=== PATIENT | female | born 1935 | race Caucasian/White ===

== ENCOUNTER → 2018-03-01 | Outpatient (CLI) | payer OTHER ==
[~2018-03-01] MED LIST: LIPITOR20 MG; PERCOCET 5/3251 TAB PO; POLY119PG PO
== END | disposition home or self-care (01) ==
LOC: NUCLEAR 09:00
DX: I87.2 Venous insufficiency (chronic) (peripheral) (principal)

== ENCOUNTER 2018-05-16 12:26 | Outpatient (CLI) | payer OTHER | END 2018-05-16 17:00 | disposition home or self-care (01) | LOC: MRI 12:26 | DX: M54.17 Radiculopathy, lumbosacral region (principal) | CPT/HCPCS: 72148 ==

== ENCOUNTER 2018-10-27 12:37 | Outpatient (CLI) | payer OTHER ==
[~2018-10-27 12:37] MED LIST changes: +LIDOCAINE HC35.44 GM TOP; +LYRICA50 MG PO
== END 2018-10-27 12:58 | disposition home or self-care (01) ==
LOC: SONOGRAMA 12:37 → MAMO-SONO 13:15
DX: M65.871 Other synovitis and tenosynovitis, right ankle and foot (principal)

== ENCOUNTER 2018-12-23 12:12 | Outpatient (CLI) | payer OTHER | END 2018-12-23 14:00 | disposition home or self-care (01) | LOC: NUCLEAR 12:12 | DX: M81.0 Age-related osteoporosis without current pathological fracture (principal) ==

== ENCOUNTER 2023-11-10 13:55 | Outpatient (CLI) | payer OTHER ==
[~2023-11-10 13:55] MED LIST changes: +PERCOCET 5-3251 EACH PO
== END 2023-11-10 14:04 | disposition home or self-care (01) ==
LOC: RAD 13:55
PROVIDERS: ATTEND Pain Medicine Interventional Pain Medicine
DX: M54.50 Low back pain, unspecified (principal)

== ENCOUNTER → 2024-04-12 | Outpatient (CLI) | payer OTHER | END | disposition home or self-care (01) | LOC: RAD 10:43 | PROVIDERS: ATTEND Anesthesiology | DX: M48.062 Spinal stenosis, lumbar region with neurogenic claudication (principal) ==